=== PATIENT | female | born 1950 | race Caucasian/White ===

== ENCOUNTER → 2021-12-09 | Day surgery (SDC) | payer MEDICARE, OTHER ==
[~2021-12-09] MED LIST: ASPIRIN81 MG PO; HUMALOG100 UNIT/1 SQ; HYDROCHLOROTHIA25 MG PO; LANTUS SOL100 UNIT/1 SQ; LISINOPRIL40 MG PO; OMEPRAZOLE40 MG PO; TOPROL XL25 MG PO; TYLENOL EXTRA500 MG PO; VITAMIN D21250 MCG PO
== END | disposition home or self-care (01) ==
LOC: OR 07:29
DX: R19.4 Change in bowel habit (principal); R19.7 Diarrhea, unspecified; G47.33 Obstructive sleep apnea (adult) (pediatric); E66.01 Morbid (severe) obesity due to excess calories; I10 Essential (primary) hypertension; E78.5 Hyperlipidemia, unspecified; E11.9 Type 2 diabetes mellitus without complications; Z68.41 Body mass index [BMI] 40.0-44.9, adult; Z79.82 Long term (current) use of aspirin; Z79.4 Long term (current) use of insulin; Z79.899 Other long term (current) drug therapy
CPT/HCPCS: 82962; J2704; J7040